=== PATIENT | male | born 1950 | race Two or more races ===

== ENCOUNTER 2018-05-24 12:57 | Emergency (ER) | payer MEDICARE, OTHER ==
[~2018-05-24] VITALS: Ht 172.7 cm; Wt 86.2 kg
[~2018-05-24 12:57] MED LIST: AMOXICILLIN500 MG ORAL; IBUPROFEN600 MG ORAL
--- NOTE | 2018-05-24 13:29 | Emergency Room Report ---
History of Present Illness General Chief Complaint: Edema Source: Patient Present Illness HPI 68 YO Male presents to the ED C/O in severity intermittent swelling of the right side of cheek/ mouth. pt. believes is due to tooth infection however denies tooth pain or tenderness. Pt. denies similar symptoms in the past. Pt states he doesn't know if he has had dry mouth. denies new medications. Denies fevers or chills. denies recent illness. Denies CP, Palpitations, LOC, AMS, dizziness, Changes in Vision, Sensation, paresthesias, or a sudden severe headache. Allergies: Coded Allergies: No Known Allergies (Unverified , 06/25/15) Patient History Past Medical History: see triage record Past Surgical History: none Pertinent Family History: none Immunizations: UTD Reviewed Nursing Documentation: PMH: Agreed; PSxH: Agreed Nursing Documentation-PMH Past Medical History: No History, Except For Hx Neurological Problems: Yes - Rheumatoid Arthritis, Fibromyalgia, Review of Systems All Other Systems: negative except mentioned in HPI Physical Exam Vital Signs Date Time Temp Pulse Resp B/P (MAP) Pulse Ox O2 Delivery O2 Flow Rate FiO2 05/24/18 13:05 97.5 68 16 126/76 94 Room Air 97.5 Sp02 EP Interpretation: reviewed, normal General Appearance: no apparent distress, alert, GCS 15, non-toxic Head: normocephalic, atraumatic ENT: hearing grossly normal, normal voice, other - mild swelling/fullness noted to the right lower cheek area, no palpable fluctuance, increased temperature to palpation or notable redness noted. Neck: full range of motion Respiratory: chest non-tender, lungs clear, normal breath sounds, speaking full sentences Cardiovascular #1: regular rate, rhythm Musculoskeletal: back normal, gait/station normal, normal range of motion, non- tender Neurologic: alert, oriented x3, responsive, motor strength/tone normal, sensory intact, speech normal, grossly normal Psychiatric: judgement/insight normal Skin: normal color, no rash, warm/dry, well hydrated Lymphatic: no adenopathy Medical Decision Making PA Attestation Dr. rod is my supervising Physician whom patient management has been discussed with. Diagnostic Impression: Primary Impression: Sialoadenitis, unspecified Additional Impression: Parotid sialolithiasis ER Course Pt. presents to the ED c/o facial swelling that is intermittent. Pt. denies tooth pain Ddx considered but are not limited to sialoadenitis, sialolithiasis, mumps, abscess, neoplasm/mass, adenopathy. Vital signs: are WNL, pt. is afebrile H&PE are most consistent with sialoadenitis, due to extension down into the neck further imaging is required. ORDERS: ED INTERVENTIONS: None required at this time. DISCHARGE: At this time pt. is stable for d/c to home. Will provide printed patient care instructions, and any necessary prescriptions. Care plan and follow up instructions have been discussed with the patient prior to discharge. Last Vital Signs Date Time Temp Pulse Resp B/P (MAP) Pulse Ox O2 Delivery O2 Flow Rate FiO2 05/24/18 13:05 97.5 68 16 126/76 94 Room Air 97.5 Disposition: HOME, SELF-CARE Condition: Stable Scripts Ibuprofen* (MOTRIN*) 600 Mg Tablet 600 MG ORAL Q6H PRN for For Pain, #20 TAB Prov: Christal Chen 05/24/18 Acetaminophen With Codeine (T#3) (TYLENOL #3 TAB*) Y Tab 1 TAB ORAL Q6HR PRN for For Pain, #9 TAB Prov: Christal Chen 05/24/18 Amoxicillin/Potassium Clav 875-125* (AUGMENTIN 875-125 TABLET*) 1 Each Tablet 1 TAB ORAL TWICE A DAY for 7 Days, #14 TAB Prov: Christal Chen 05/24/18 Patient Instructions: Salivary Gland Infection, Salivary Stone Additional Instructions: Take medications as directed. Follow up with a Primary Care Provider and your Dentist in 3-5 days, even if your symptoms have resolved. --Please review list of primary care clinics, if you do not already have a primary care provider Return sooner to ED if new symptoms occur, or current symptoms become worse. Do not drink alcohol, drive, or operate heavy machinery while taking Tylenol # 3 as this may cause drowsiness. - Please note that this Emergency Department Report was dictated using [place] [employer] technology software, occasionally this can lead to erroneous entry secondary to interpretation by the dictation equipment. Christal Chen May 24, 2018 13:29
[2018-05-24 13:30] VITALS: BP 126/76
[2018-05-24] MEDS ORDERED: AUGMENTIN 875-1 EAC1 ORAL (13:30)
[2018-05-24] MEDS ORDERED: ACETAMINOPHEN-1 EAC1 ORAL (13:30)
[2018-05-24] MEDS ORDERED: IBUPROFEN600 MG ORAL (13:30)
[2018-05-24 14:20] VITALS: BP 126/76
== END 2018-05-24 14:20 | disposition home or self-care (01) ==
LOC: EMR 13:30
DX: K11.20 Sialoadenitis, unspecified (principal); M06.9 Rheumatoid arthritis, unspecified; M79.7 Fibromyalgia
CPT/HCPCS: 99284

== ENCOUNTER 2018-10-25 18:47 | Emergency (ER) | payer MEDICARE, OTHER ==
[~2018-10-25] VITALS: Ht 170.2 cm; Wt 86.6 kg
[~2018-10-25 18:47] MED LIST changes: +ACETAMINOPHEN-1 EAC1 ORAL; +AUGMENTIN 875-1 EAC1 ORAL
[2018-10-25] MEDS ORDERED: AUGMENTIN 875-1 EAC1 ORAL (19:29)
[2018-10-25] MEDS ORDERED: TYLENOL EXTRA500 MG ORAL (19:29)
--- NOTE | 2018-10-25 19:30 | Emergency Room Report ---
History of Present Illness General Chief Complaint: Toothache Source: Patient, Medical Record Present Illness HPI 68-year-old male patient presents the ER complaining of gum and tooth infection for the past 2 weeks. Patient reports history of similar symptoms in the past, states he was previously seen at this ER for similar symptoms associated with salivary gland infection. Reports that he did not follow-up with maxillofacial surgeon after previous visit. Reports symptoms began slow in onset during the past 2 weeks so he began using Listerine to try and prevent the infection from occurring. Reports saw dentist a month and a half ago, states has not seen them since onset of symptoms. Reports tooth pain on left upper gum. Denies fever, vomiting, chest pain, shortness of breath. Denies blood or pus drainage from gums. Allergies: Coded Allergies: No Known Allergies (Unverified , 10/25/18) Patient History Past Medical History: see triage record Reviewed Nursing Documentation: PMH: Agreed; PSxH: Agreed Nursing Documentation-PMH Past Medical History: No History, Except For Hx Neurological Problems: Yes - Rheumatoid Arthritis, Fibromyalgia, Review of Systems All Other Systems: negative except mentioned in HPI Physical Exam Vital Signs Date Time Temp Pulse Resp B/P (MAP) Pulse Ox O2 Delivery O2 Flow Rate FiO2 10/25/18 18:51 98.4 83 16 133/82 94 Room Air Sp02 EP Interpretation: reviewed, normal General Appearance: well appearing, no apparent distress, alert, GCS 15, non- toxic Head: normocephalic, atraumatic, other - No facial swelling Eyes: bilateral eye normal inspection, bilateral eye PERRL ENT: hearing grossly normal, normal pharynx, no angioedema, normal voice, uvula midline, moist mucus membranes, other - Left upper gum: Tooth #14 tender to palpation, gum inflamed, erythematous with small indurated palpable mass, no pus expressible, receding gums; multiple teeth missing Neck: full range of motion Respiratory: lungs clear, normal breath sounds, no rhonchi, no respiratory distress, no accessory muscle use, no wheezing, speaking full sentences Cardiovascular #1: regular rate, rhythm, no edema Neurologic: alert, oriented x3, responsive, motor strength/tone normal, sensory intact Psychiatric: mood/affect normal Skin: no rash Medical Decision Making PA Attestation Dr. Sharpe is my supervising Physician whom patient management has been discussed with. Diagnostic Impression: Primary Impression: Toothache Additional Impression: Gum inflammation ER Course Pt. presents to the ED c/o dental and gum pain. Ddx considered but are not limited to cellulitis, abscess, dental caries, gingivitis, gum infection, preseptal cellulitis. Does not require imaging at this time. Vital signs: are WNL, pt. is afebrile ED INTERVENTIONS: Pain medication provided in the ER. Nontoxic appearing, speaking full sentences, no active draining, mild edema, no trismus or vision changes. Erythematous and inflamed gum, indurated, no fluctuance, left upper gum tooth tender to palpation, likely dental infection, does not require I&D at this time. Follow-up with maxillofacial specialist. Contact information provided for specialist. Will provide abx for infection to cover for possible infection. provided with contact information for dentists. F/u with PCP and dentist for further treatment. DISCHARGE: -Rx provided for Tylenol -Rx provided for Augmentin At this time pt. is stable for d/c to home. Patient is resting comfortably, in no acute distress, nontoxic appearing, talking and smiling without difficulty. Will provide printed patient care instructions and any necessary prescriptions. Care plan and follow up instructions have been discussed with the patient prior to discharge. Patient instructed to follow-up with primary care provider in 2 - 3 days. Followup with dentist. Patient questions asked and answered. Patient reports understanding and agreement to treatment plan. ER precautions given. Patient instructed to return to ER immediately for any new or worsening of symptoms including but not limited to fever, worsening of pain symptoms, worsening of erythema, red streaking. - Please note that this Emergency Department Report was dictated using [employer] technology software, occasionally this can lead to erroneous entry secondary to interpretation by the dictation equipment. Last Vital Signs Date Time Temp Pulse Resp B/P (MAP) Pulse Ox O2 Delivery O2 Flow Rate FiO2 10/25/18 18:51 98.4 83 16 133/82 94 Room Air Disposition: HOME, SELF-CARE Condition: Stable Scripts Acetaminophen* (TYLENOL EXTRA STRENGTH*) 500 Mg Tablet 500 MG ORAL Q8H PRN for Prn Headache/Temp > 101, #30 TAB 0 Refills Prov: Gumaro Car 10/25/18 Amoxicillin/Potassium Clav 875-125* (AUGMENTIN 875-125 TABLET*) 1 Each Tablet 1 TAB ORAL TWICE A DAY, #14 TAB Prov: Gumaro Car 10/25/18 Patient Instructions: Dental Pain, [id number], Gingivitis, [id number] Additional Instructions: Follow-up with dentist in 1-2 days. Followup with primary care provider in 1-2 days. Discuss referral to maxillofacial specialist/oral surgeon. Take medications as directed. Patient questions asked and answered. ER precautions given, patient instructed to return to ER immediately for any new or worsening of symptoms. Gumaro Car Oct 25, 2018 19:30
[2018-10-25 19:45] VITALS: BP 133/82
[2018-10-25] MEDS ORDERED: Acetaminophen 500mg (ES) tab ORAL ONE (19:45)
== END 2018-10-25 19:45 | disposition home or self-care (01) ==
LOC: EMR 19:28
DX: K08.89 Other specified disorders of teeth and supporting structures (principal); M06.9 Rheumatoid arthritis, unspecified; M79.7 Fibromyalgia
CPT/HCPCS: 99282

== ENCOUNTER 2019-05-08 11:11 | Emergency (ER) | payer MEDICARE, OTHER ==
[~2019-05-08] VITALS: Ht 170.2 cm; Wt 83.5 kg
[~2019-05-08 11:11] MED LIST changes: +TYLENOL EXTRA500 MG ORAL
[2019-05-08] MEDS ORDERED: PRAVASTATIN SOD10 M1 ORAL (11:18)
[2019-05-08] MEDS ORDERED: TENORMIN100 MG ORAL (11:18)
[2019-05-08 11:21] VITALS: BP 134/81
--- NOTE | 2019-05-08 11:51 | Emergency Room Report ---
History of Present Illness General Chief Complaint: Multiple Trauma/Fall Source: Patient Present Illness HPI Patient presents with reports of trip and fall earlier this morning patient reports that [place] with his right leg slipping out from underneath him falling on his buttock area Patient claims of pain to the pelvic area right lower back upper back area as well denies any lapse of consciousness Denies any loss of control of bowel or urination denies any obvious focal weakness Pain is 6 out of 10 worse with standing and ambulation Allergies: Coded Allergies: No Known Allergies (Unverified , 10/25/18) Patient History Past Medical History: see triage record Pertinent Family History: none Reviewed Nursing Documentation: PMH: Agreed; PSxH: Agreed Nursing Documentation-PMH Hx Hypertension: Yes - hyperlipidemia Hx Neurological Problems: Yes - Rheumatoid Arthritis, Fibromyalgia Review of Systems All Other Systems: negative except mentioned in HPI Physical Exam Vital Signs Date Time Temp Pulse Resp B/P (MAP) Pulse Ox O2 Delivery O2 Flow Rate FiO2 05/08/19 11:15 97.5 70 18 134/81 (98) 96 Room Air Sp02 EP Interpretation: reviewed, normal General Appearance: well appearing, no apparent distress Head: normocephalic, atraumatic Eyes: bilateral eye PERRL, bilateral eye EOMI ENT: hearing grossly normal, normal pharynx, TMs + canals normal, uvula midline Neck: full range of motion, supple, no meningismus, no bony tend Respiratory: lungs clear, normal breath sounds, no rhonchi, no respiratory distress, no retraction, no accessory muscle use Cardiovascular #1: normal peripheral pulses, regular rate, rhythm, no edema, no gallop, no JVD, no murmur Gastrointestinal: normal bowel sounds, non tender, soft, no mass, no organomegaly, non-distended, no guarding, no hernia, no pulsatile mass, no rebound Genitourinary: no CVA tenderness Musculoskeletal: other - Tender on palpation of the right hip area also pain with flexion of the right hip tender on palpation of the right paraspinal L3-L4 region Neurologic: oriented x3, responsive, shoemaker apprentice III-XII nml as tested, motor strength/ tone normal, sensory intact Psychiatric: mood/affect normal Skin: normal color, no rash, warm/dry, palpation normal Lymphatic: normal inspection, no adenopathy Medical Decision Making Diagnostic Impression: Primary Impression: Contusion Additional Impression: Back sprain ER Course Given the patient's history and presentation multiple differentials considered including but not limited to contusion acute fracture , Dislocations, patient's imaging studies are fairly benign, patient is ambulatory without any obvious focal deficit and is stable for initial conservative outpatient trial CT/MRI/US Diagnostic Results CT/MRI/US Diagnostic Results : Impression CT L-spineImpression: No acute bony trauma Multilevel degenerative changes, as detailed on a level by level basis above CT pelvic: no acute disease Last Vital Signs Date Time Temp Pulse Resp B/P (MAP) Pulse Ox O2 Delivery O2 Flow Rate FiO2 05/08/19 11:21 97.5 70 18 134/81 96 Room Air Status: improved Disposition: HOME, SELF-CARE Condition: Improved Scripts Methocarbamol* (ROBAXIN-750*) 750 Mg Tablet 750 MG PO TID, #21 TAB 0 Refills Prov: Fady Guerrier DO 05/08/19 Ibuprofen* (MOTRIN*) 600 Mg Tablet 600 MG ORAL Q8H PRN for For Pain, #20 TAB 0 Refills Prov: Fady Guerrier DO 05/08/19 Referrals: NON PHYSICIAN (PCP) Additional Instructions: Patient is provided with the discharge instructions notified to follow up with primary doctor in the next 2-3 days otherwise return to the er with any worsening symptoms. Please note that this report is being documented using [employer] technology. This can lead to erroneous entry secondary to incorrect interpretation by the dictating instrument. Fady Guerrier DO May 08, 2019 11:51
--- NOTE | 2019-05-08 13:19 | Diagnostic Imaging Report ---
Indications: Trip and fall, lower back and upper back pain Technique: Spiral acquisitions obtained through the lumbar spine. Multiplanar reconstructions were generated. No IV contrast utilized. Total dose length product 520.97 mGycm. CTDIvol(s) 17.77 mGy. Dose reduction achieved using automated exposure control Comparison: none Findings: There is very slight anterior offset of L5 on S1. Bony alignment is otherwise normal. No acute fractures. No dislocations. Vertebral body heights are preserved. There is degenerative disc narrowing at T11-12, with considerable endplate irregularity. There is mild narrowing of the right neural foramen. No significant disc bulge or protrusion or spinal stenosis. There is mild degenerative disc narrowing at T12-L1. No significant disc bulge or protrusion, spinal stenosis, or neural foraminal stenosis. At L1-2, no significant disc bulge or protrusion, spinal stenosis, or neural foraminal stenosis. There is mild bilateral facet arthrosis. At L2-3, there is circumferential annular bulge. This, in combination with facet and ligament flavum hypertrophy, results in mild narrowing of the spinal canal. The neural foramina are preserved. There is bilateral facet arthrosis. The disc space is preserved At L3-4, the disc space is preserved although there is mild vacuum formation. There is circumferential annular bulge. This, in combination with facet and ligamentum flavum hypertrophy results in mild narrowing of the spinal canal. The neural foramina are preserved. At L4-5, there is broad-based posterior disc protrusion. Both central and right paracentral. This results in moderate narrowing of the spinal canal and the right paracentral component a impinge upon the right lateral recess. There is mild neural foraminal compromise from the bulging disc as well as facet hypertrophy from bilateral facet arthrosis. There is severe degenerative disc narrowing with vacuum formation. At L5-S1, posterior osteophytes/disc bulge complex result in moderate narrowing of the spinal canal. The neural foramina are preserved. There is severe degenerative disc narrowing with vacuum formation and endplate irregularity. There is mild bilateral facet arthrosis. The included extra spinal soft tissues are unremarkable. Impression: No acute bony trauma Multilevel degenerative changes, as detailed on a level by level basis above The CT scanner at [facility] is accredited by the [employer] and the scans are performed using protocols designed to limit radiation exposure to as low as reasonably achievable to attain images of sufficient resolution adequate for diagnostic evaluation.
--- NOTE | 2019-05-08 13:24 | Diagnostic Imaging Report ---
Indication: Pelvic and right leg pain, status post trauma with trip and fall Technique: Noncontrast spiral acquisitions obtained through the pelvis. Multiplanar reconstructions generated. Total dose length product 410.17 mGycm. CTDIvol(s) 14.87 mGy. Dose reduction achieved using automated exposure control Comparison: none Findings: No acute fractures. No dislocations. There are minimal degenerative changes of the bilateral hip joints. There are degenerative changes of the lumbosacral junction noted. There is mild increased density of the bilateral hip region subcutaneous fat which is fairly symmetrical, but no definite significant soft tissue contusion. Included pelvic viscera are unremarkable. Impression: No acute bony trauma Degenerative changes of the lumbosacral junction. The CT scanner at [facility] is accredited by the [employer] and the scans are performed using protocols designed to limit radiation exposure to as low as reasonably achievable to attain images of sufficient resolution adequate for diagnostic evaluation.
[2019-05-08] MEDS ORDERED: ROBAXIN-750750 MG PO (13:50)
[2019-05-08] MEDS ORDERED: IBUPROFEN600 MG ORAL (13:50)
[2019-05-08 13:58] VITALS: BP 127/78
== END 2019-05-08 14:00 | disposition home or self-care (01) ==
LOC: EMR 11:44
DX: S33.5XXA Sprain of ligaments of lumbar spine, initial encounter (principal); T14.8XXA Other injury of unspecified body region, initial encounter; E78.5 Hyperlipidemia, unspecified; M06.9 Rheumatoid arthritis, unspecified; M79.7 Fibromyalgia; R10.2 Pelvic and perineal pain; W01.0XXA Fall on same level from slipping, tripping and stumbling without subsequent striking against object, initial encounter; Y92.512 Supermarket, store or market as the place of occurrence of the external cause
CPT/HCPCS: 72131; 72192; 99284